=== PATIENT | female | born 1995 | race Two or more races ===

== ENCOUNTER 2019-12-03 03:43 | Emergency (ER) | payer SELFPAY ==
[~2019-12-03] VITALS: Ht 170.2 cm; Wt 85.7 kg
[2019-12-03 04:05] VITALS: BP 123/71
--- NOTE | 2019-12-03 04:11 | NUR ---
PT LEFT WITHOUT BEING SEEN BY ER MD.
== END 2019-12-03 04:12 | disposition left against medical advice (07) ==
LOC: ER 03:47
DX: Z53.21 Procedure and treatment not carried out due to patient leaving prior to being seen by health care provider (principal); R51 Headache